=== PATIENT | male | born 1960 | race Hispanic/Latino ===

== ENCOUNTER 2020-03-06 | Emergency (ER) | payer SELFPAY ==
[~2020-03-06] MED LIST: CYCLOBENZAPR10 MG PO; EC-NAPROSYN500 MG PO; FLEXERIL OR; FLEXERIL PO; KEFLEX500 M1 PO; LORTAB 5/3255 MG PO; LORTAB 7.57.5 MG OR; NAPROSYN500 MG OR; NAPROSYN500 MG PO; NO HOME MEDS; ULTRAM50 MG OR
[2020-03-06 04:54] LABS: HEMATOCRIT 48.8 % (39.0-50.0); HEMOGLOBIN 16.5 g/dl (14.0-18.0); IMMATURE GRANULOCYTES 0.3 % (0.0-5.0); MEAN CELL VOLUME 86.4 fL CALC (80.0-100.0); MEAN CORPUSCULAR HGB 29.2 pG CALC (26.0-32.0); MEAN CORPUSCULAR HGB CONC 33.8 g/dL CAL (32.0-36.0); NEUT# 4.89 thou/uL (1.82-7.42); RED BLOOD COUNT 5.65 mill/uL (4.70-6.10); RED CELL DISTRI WIDTH 12.8 % (11.5-15.5)
[2020-03-06 05:03] LABS: ALBUMIN 4.3 g/dL (3.2-5.0); ALKALINE PHOSPHATASE 70 u/l (38-126); ANION GAP 12 (6-22 (CALC)); BILIRUBIN, TOTAL 0.7 mg/dL (0.0-1.4); BUN 20 mg/dL (9-20); BUN/CREATININE RATIO 23 (12-20 (CALC)); CARBON DIOXIDE 26 mmol/l (22-30); CHLORIDE 104 mmol/l (95-108); CREATININE 0.9 mg/dL (0.7-1.3); GFR > 60 ML/MIN (>=60 (CALC)); GFR FOR AFR.AMER. > 60 ML/MIN (>=60 (CALC)); POTASSIUM 3.5 mmol/l (3.5-5.1); SGOT/AST 56 u/l (17-59); SODIUM 139 mmol/l (137-146); TOTAL PROTEIN 8.3 g/dL (6.3-8.2)
[2020-03-06 05:15] LABS: MYOGLOBIN 56 ng/mL (0 - 121)
[2020-03-06 05:29] LABS: ACT PARTIAL THROMBO TIME 25.3 SECONDS (20.0-32.5); INTERNATIONAL NORMALIZED RATIO 1.1 RATIO (0.7-1.3)
== END 2020-03-06 05:15 | disposition short-term general hospital (02) | DRG 282 ==
PROVIDERS: Emergency Medicine
DX: I21.3 ST elevation (STEMI) myocardial infarction of unspecified site (principal)
CPT/HCPCS: J2997

== ENCOUNTER 2022-08-24 02:35 | Emergency (ER) | payer BC ==
[~2022-08-24] VITALS: Ht 170.2 cm; Wt 97.7 kg
[~2022-08-24 02:35] MED LIST changes: +CLOPIDOGREL75 MG PO; +EZALLOR SPRINKL40 MG; +KAPSPARGO SPRIN25 MG; +PROTONIX20 M1 PO; +VAZALORE81 MG
[2022-08-24 02:54] VITALS: BP 136/77
[2022-08-24 03:00] VITALS: BP 131/80
[2022-08-24 05:39] LABS: ALBUMIN 4.1 g/dL (3.2-5.0); ALKALINE PHOSPHATASE 47 u/l (38-126); ANION GAP 16 (6-22 (CALC)); BUN 22 mg/dL (9-20); BUN/CREATININE RATIO 27 (12-20 (CALC)); CARBON DIOXIDE 21 mmol/l (22-30); CHLORIDE 109 mmol/l (95-108); CREATININE 0.8 mg/dL (0.7-1.3); GFR FOR AFR.AMER. > 60 ML/MIN (>=60 (CALC)); GFR OTHER RACES > 60 ML/MIN (>=60 (CALC)); POTASSIUM 4.2 mmol/l (3.5-5.1); SGOT/AST 61 u/l (17-59); SODIUM 141 mmol/l (137-146); TOTAL PROTEIN 7.7 g/dL (6.3-8.2)
[2022-08-24 05:44] LABS: URINE BILIRUBIN - DIPSTICK NEGATIVE (NEGATIVE); URINE BLOOD DIPSTICK TRACE-INTACT (NEGATIVE); URINE COLOR YELLOW; URINE GLUCOSE - DIPSTICK NEGATIVE (NEGATIVE); URINE KETONE NEGATIVE (NEGATIVE); URINE LEUK ESTERASE NEGATIVE (NEGATIVE); URINE PROTEIN - DIPSTICK NEGATIVE (NEG-TRACE); URINE SPECIFIC GRAVITY >=1.030
[2022-08-24 05:48] LABS: IMMATURE GRANULOCYTES 0.1 % (0.0-5.0); MEAN CELL VOLUME 89.2 fL CALC (80.0-100.0); MEAN CORPUSCULAR HGB 29.4 pG CALC (26.0-32.0); MEAN CORPUSCULAR HGB CONC 32.9 g/dL CAL (32.0-36.0); NEUT# 3.15 thou/uL (1.82-7.42); RED BLOOD COUNT 4.73 mill/uL (4.70-6.10); RED CELL DISTRI WIDTH 14.5 % (11.5-15.5)
[2022-08-24 05:53] LABS: URINE NITRITE - DIPSTICK NEGATIVE (Negative)
[2022-08-24 05:54] LABS: HEMATOCRIT 42.2 % (39.0-50.0); HEMOGLOBIN 13.9 g/dl (14.0-18.0)
[2022-08-24] MEDS ORDERED: POLYTRIM OU (06:41)
[2022-08-24] MEDS ORDERED: TORADOL PO (06:41)
[2022-08-24 06:42] VITALS: BP 126/79
[2022-08-24 06:45] VITALS: BP 117/70
== END 2022-08-24 06:57 | disposition home or self-care (01) | DRG 103 ==
LOC: ED 02:35
PROVIDERS: Family Medicine
DX: R51.9 Headache, unspecified (principal); H10.9 Unspecified conjunctivitis; I10 Essential (primary) hypertension

== ENCOUNTER 2024-10-23 11:35 | Emergency (ER) | payer OTHER ==
[~2024-10-23] VITALS: Ht 170.2 cm; Wt 975.0 kg
[2024-10-23] VITALS (18 sets, daily range): BP systolic 109–158; BP diastolic 47–83
[~2024-10-23 11:35] MED LIST changes: +POLYTRIM OU; +TORADOL PO
[2024-10-23] MEDS ORDERED: Barium Sulfate (Readi-Cat 2 Banana) 450 ML/BTL PO ONE (12:05)
[2024-10-23] MEDS ORDERED: KETOROLAC TROMETHAMINE 30 MG/ML SDV IV STA (12:05)
[2024-10-23] MEDS ORDERED: Barium Sulfate (Readi-Cat 2 Berry) 450 ML/BTL PO ONE (12:05)
[2024-10-23] MEDS ORDERED: ISOVUE-300 (Iopamidol) 100 ML SDV IV ONE (12:05)
[2024-10-23] MEDS ORDERED: DIATRIZOATE MEGLUMINE & SODIUM 30 ML/BTL PO ONE (12:05)
[2024-10-23 12:16] LABS: BASO% 0.5 % (0-3); EOS% 6.6 % (0-8); HEMATOCRIT 43.4 % (39.0-50.0); IMMATURE GRANULOCYTES 0.1 % (0.0-5.0); LYMPH% 15.7 % (15-41); MEAN CELL VOLUME 88.9 fL CALC (80.0-100.0); MEAN CORPUSCULAR HGB 28.7 pG CALC (26.0-32.0); MEAN CORPUSCULAR HGB CONC 32.3 g/dL CAL (32.0-36.0); MONO% 9.1 % (2-13); NEUT# 5.89 thou/uL (1.82-7.42); RED BLOOD COUNT 4.88 mill/uL (4.70-6.10); RED CELL DISTRI WIDTH 14.4 % (11.5-15.5)
[2024-10-23 13:03] LABS: URINE BILIRUBIN - DIPSTICK Negative (NEGATIVE); URINE BLOOD DIPSTICK Trace-lysed (NEGATIVE); URINE GLUCOSE - DIPSTICK Negative (NEGATIVE); URINE KETONE Negative (NEGATIVE); URINE LEUK ESTERASE Negative (NEGATIVE); URINE NITRITE - DIPSTICK Negative (Negative); URINE PH 5.5 (4.5-8.0); URINE PROTEIN - DIPSTICK Negative (NEG-TRACE); URINE SPECIFIC GRAVITY 1.025; URINE UROBILINOGEN - DIPSTICK 0.2 E.U./dL (0.2)
[2024-10-23 13:04] LABS: URINE COLOR Yellow
[2024-10-23 13:16] LABS: ALBUMIN 3.7 g/dL (3.2-5.0); BILIRUBIN, TOTAL 1.1 mg/dL (0.2-1.3); CREATININE 0.9 mg/dL (0.7-1.3); POTASSIUM 3.8 mmol/l (3.5-5.1); TOTAL PROTEIN 7.1 g/dL (6.3-8.2)
[2024-10-23] MEDS ORDERED: HYDROmorphone HCL 2 MG/AMP IV ONE ×2 (14:15→15:20)
[2024-10-23] MEDS ORDERED: ONDANSETRON HCl 4 MG/2 ML SDV IV ONE (15:20)
[2024-10-23] MEDS ORDERED: METHOCARBAMOL500 MG PO (16:13)
[2024-10-23] MEDS ORDERED: CIPROFLOXACN750 MG PO (16:13)
[2024-10-27] MEDS ORDERED: FLEXERIL5 M1 PO (16:56)
[2024-10-27] MEDS ORDERED: TRAMADOL HYDROC50 M1 PO (16:56)
[2024-10-27] MEDS ORDERED: CEPHALEXIN500 M1 PO (16:56)
== END 2024-10-23 16:28 | disposition home or self-care (01) | DRG 690 ==
LOC: ED 11:35
PROVIDERS: Family Medicine
DX: N30.90 Cystitis, unspecified without hematuria (principal); M62.838 Other muscle spasm; I10 Essential (primary) hypertension
CPT/HCPCS: J1171; J2405; Q9967